=== PATIENT | female | born 1960 | race Caucasian/White ===

== ENCOUNTER 2017-03-06 11:50 | Outpatient (CLI) | payer OTHER ==
[~2017-03-06] VITALS: Ht 157.5 cm; Wt 68.0 kg
[~2017-03-06 11:50] MED LIST: COLC1TAB13 PO; LISI10TA4 PO; LR 1,000 ML IV SCH; MOME0.1C3 TOP; MONT10TA2 PO; OMEP20CA3 PO; VENL150C43 PO; VENL37.598 PO; VITA1CAP40 PO
[2017-03-06] MEDS ORDERED: PROPOFOL 500 MG/50 ML VIAL As Ordered ONE (13:20)
[2017-03-06] MEDS ORDERED: LIDOCAINE 2% INJ 100 MG/5 ML SDV (FOR ANES.) As Ordered ONE (13:20)
[2017-03-06] MEDS ORDERED: PROPOFOL 200 MG/20 ML VIAL As Ordered ONE (14:16)
--- NOTE | 2017-03-06 14:34 | ROOR ---
Patient Name: Maria Elena Pappas Procedure Date: 03/06/2017 1:47 PM Date of : 1960 Age: 56 Room: [facility] Gender: Female Note Status: Finalized Procedure: Colonoscopy Indications: Colon cancer screening in patient at increased risk: Colorectal cancer in mother, Colon cancer screening in patient at increased risk: Colorectal cancer in sister Providers: Robert Morocho MD Referring MD: Yudy Castillo MD Requesting Provider: Medicines: Monitored Anesthesia Care Complications: No immediate complications. Procedure: Pre-Anesthesia Assessment: - Prior to the procedure, a History and Physical was performed, and patient medications and allergies were reviewed. The patient is competent. The risks and benefits of the procedure and the sedation options and risks were discussed with the patient. All questions were answered and informed consent was obtained. Patient identification and proposed procedure were verified by the physician, the nurse and the anesthesiologist in the procedure room. Mental Status Examination: alert and oriented. Airway Examination: normal oropharyngeal airway and neck mobility. CV Examination: regular rate and rhythm. Prophylactic Antibiotics: The patient does not require prophylactic antibiotics. Prior Anticoagulants: The patient has taken no previous anticoagulant or antiplatelet agents. ASA Grade Assessment: II - A patient with mild systemic disease. After reviewing the risks and benefits, the patient was deemed in satisfactory condition to undergo the procedure. The anesthesia plan was to use monitored anesthesia care (MAC). Immediately prior to administration of medications, the patient was re-assessed for adequacy to receive sedatives. The heart rate, respiratory rate, oxygen saturations, blood pressure, adequacy of pulmonary ventilation, and response to care were monitored throughout the procedure. The physical status of the patient was re-assessed after the procedure. The Colonoscope was introduced through the anus and advanced to the cecum, identified by appendiceal orifice and ileocecal valve. The colonoscopy was performed without difficulty. The patient tolerated the procedure well. The quality of the bowel preparation was excellent. Findings: The digital rectal exam findings include anal stricture. Pertinent negatives include no blood and no palpable abnormality. A 4 mm polyp was found in the splenic flexure. The polyp was sessile. The polyp was removed with a piecemeal technique using a cold biopsy forceps. Resection and retrieval were complete. A single medium-sized localized angiodysplastic lesion without bleeding was found in the cecum. Impression: - Anal stricture found on digital rectal exam. I could insert my finger to the middle of the middle phalanx only. - One 4 mm polyp at the splenic flexure, removed piecemeal using a cold biopsy forceps. Resected and retrieved. - A single non-bleeding colonic angiodysplastic lesion. Recommendation: - Discharge patient to home. - Resume previous diet. - Continue present medications. - Await pathology results. - Telephone endoscopist for pathology results in 1 week. - If the pathology report reveals adenomatous tissue, then repeat the colonoscopy for surveillance in 5 years. Robert Morocho MD 03/06/2017 2:33:51 PM Number of Addenda: 0 Note Initiated On: 03/06/2017 1:47 PM Estimated Blood Loss: Estimated blood loss was minimal.
[2017-03-06 14:42] VITALS: BP 166/105
== END 2017-03-06 15:33 | disposition home or self-care (01) ==
LOC: M OPP 11:50
PROVIDERS: ATTEND Surgery
DX: Z12.11 Encounter for screening for malignant neoplasm of colon (principal); K62.4 Stenosis of anus and rectum; D12.3 Benign neoplasm of transverse colon; K55.20 Angiodysplasia of colon without hemorrhage; Z80.0 Family history of malignant neoplasm of digestive organs; I10 Essential (primary) hypertension; K21.9 Gastro-esophageal reflux disease without esophagitis; K92.9 Disease of digestive system, unspecified; L40.52 Psoriatic arthritis mutilans; F41.9 Anxiety disorder, unspecified; F32.9 Major depressive disorder, single episode, unspecified; Z79.899 Other long term (current) drug therapy

== ENCOUNTER → 2017-08-05 | Outpatient (REF) | payer OTHER ==
[2017-08-05 20:21] LABS: INFLUENZA A AMPLIFICATION NEGATIVE (NEGATIVE); INFLUENZA B AMPLIFICATION POSITIVE (NEGATIVE); RSV AMPLIFICATION NEGATIVE (NEGATIVE)
== END ==
LOC: M LAB REF 19:23
DX: J11.1 Influenza due to unidentified influenza virus with other respiratory manifestations (principal)

== ENCOUNTER → 2019-08-02 | Outpatient (REF) | payer OTHER ==
[~2019-08-02] MED LIST changes: -LR 1,000 ML IV SCH; +OMEP1CAP73 PO; -OMEP20CA3 PO; -VITA1CAP40 PO; +VITA50005 PO
== END ==
LOC: M LAB REF 09:29
PROVIDERS: ATTEND Family Medicine
DX: Z12.4 Encounter for screening for malignant neoplasm of cervix (principal)
CPT/HCPCS: 87624; G0123

== ENCOUNTER → 2020-08-29 | Outpatient (REF) | payer OTHER ==
[~2020-08-29] MED LIST changes: +COLC0.6T47 PO; -COLC1TAB13 PO; +LISI10TA22 PO; -LISI10TA4 PO; +MONT10TA10 PO; -MONT10TA2 PO
== END ==
LOC: M LAB REF 18:37
PROVIDERS: ATTEND Family Medicine
DX: Z01.419 Encounter for gynecological examination (general) (routine) without abnormal findings (principal)

== ENCOUNTER → 2020-11-22 | Outpatient (CLI) | payer OTHER ==
--- NOTE | 2020-11-22 17:23 | REPMRS ---
Patient History The patient states she had a clinical breast exam in 09/2020. Patient is postmenopausal. Family history of breast cancer at age 50 or over and colorectal cancer at age 50 or over in mother, breast cancer at age 62 and colorectal cancer at age 62 in sister, colorectal cancer at age 58 in sister. Took estrogen for 6 months. Tomosynthesis is performed. Volpara breast density is b. Patient states no breast complaints today. Patient has signed MRS History Sheet. Digital Woman Screen Mammo: November 22, 2020 - Exam #: [id number] Bilateral CC and MLO view(s) were taken. Technologist: Mikaela Zimmer, Technologist Prior study comparison: March 17, 2014, digital woman screen mammo performed at [facility]. June 19, 2010, bilateral bilat screen digital mammo performed at [facility]. FINDINGS: There are scattered fibroglandular densities. There has been no change in the appearance of the mammogram from the prior studies. There is a mild amount of residual fibroglandular tissue which is fairly symmetric. There is no interval development of dominant mass, architectural distortion, or clustered microcalcification suggestive of malignancy. Assessment: BI-RADS/ACR category 1 mammogram. Negative Mammogram. Recommendation Routine screening mammogram in 1 year (for women over age 40). This mammogram was interpreted with the aid of an FDA-approved computer-aided dectection system. The Lifetime Breast Cancer Risk is estimated at 23.2%. Yearly supplemental screening MRI of the breasts is recommended for patients with an elevated lifetime risk of breast cancer of 20% or greater, in addition to annual screening mammography, staggered every 6 months. Electronically Signed By: Tom Luong MD 11/22/20 0857
== END ==
LOC: M WHC 15:53
PROVIDERS: ATTEND Family Medicine
DX: Z12.31 Encounter for screening mammogram for malignant neoplasm of breast (principal)

== ENCOUNTER → 2021-11-29 | Outpatient (CLI) | payer OTHER ==
[~2021-11-29] MED LIST changes: -MONT10TA10 PO; +MONT10TA97 PO
== END ==
LOC: M WHC 14:26
PROVIDERS: ATTEND Family Medicine
DX: Z12.31 Encounter for screening mammogram for malignant neoplasm of breast (principal); M81.0 Age-related osteoporosis without current pathological fracture

== ENCOUNTER → 2022-03-24 | Outpatient (CLI) | payer OTHER ==
[~2022-03-24] MED LIST changes: +HYDR-3490 PO
== END ==
LOC: M LABSMTC 12:01
PROVIDERS: ATTEND Anesthesiology
DX: Z01.818 Encounter for other preprocedural examination (principal); Z11.52 Encounter for screening for COVID-19

== ENCOUNTER 2022-03-28 11:24 | Day surgery (SDC) | payer OTHER ==
[~2022-03-28] VITALS: Ht 167.6 cm; Wt 63.0 kg
[~2022-03-28 11:24] MED LIST changes: +NS 1,000 ML IV ONE
[2022-03-28] MEDS ORDERED: propofoL 200 MG/20 ML VIAL As Ordered ONE ×2 (12:05→12:17)
[2022-03-28] MEDS ORDERED: LIDOCAINE 2% 100MG/5ML SDV (FOR ANES.) As Ordered ONE (12:05)
[2022-03-28 12:45] VITALS: BP 153/87
== END 2022-03-28 12:57 | disposition home or self-care (01) ==
LOC: M OPP 11:24
PROVIDERS: ATTEND Surgery
DX: Z12.11 Encounter for screening for malignant neoplasm of colon (principal); Z86.010 Personal history of colon polyps; Z80.0 Family history of malignant neoplasm of digestive organs; D12.0 Benign neoplasm of cecum; D12.2 Benign neoplasm of ascending colon; K62.4 Stenosis of anus and rectum; Z79.52 Long term (current) use of systemic steroids; Z79.899 Other long term (current) drug therapy; Z79.810 Long term (current) use of selective estrogen receptor modulators (SERMs); I10 Essential (primary) hypertension; E78.5 Hyperlipidemia, unspecified; F32.9 Major depressive disorder, single episode, unspecified; F41.9 Anxiety disorder, unspecified

== ENCOUNTER → 2022-07-30 | Outpatient (CLI) | payer OTHER ==
[~2022-07-30] MED LIST changes: -NS 1,000 ML IV ONE; +PROHANCE 279.3MG/ML 15ML VIAL ONE
== END ==
LOC: M PLAIMG 13:47
PROVIDERS: ATTEND Family Medicine
DX: Z15.01 Genetic susceptibility to malignant neoplasm of breast (principal); Z80.3 Family history of malignant neoplasm of breast

== ENCOUNTER → 2022-09-04 | Outpatient (CLI) | payer OTHER ==
[~2022-09-04] MED LIST changes: +ISOVUE-370 76% 100ML VIAL As Ordered ONE; -PROHANCE 279.3MG/ML 15ML VIAL ONE
== END ==
LOC: M RAD 14:08
PROVIDERS: ATTEND Family Medicine
DX: M99.88 Other biomechanical lesions of rib cage (principal)

== ENCOUNTER → 2024-01-13 | Outpatient (CLI) | payer OTHER ==
[~2024-01-13] MED LIST changes: -ISOVUE-370 76% 100ML VIAL As Ordered ONE
== END ==
LOC: M RAD 17:00
PROVIDERS: ATTEND Family Medicine
DX: M25.551 Pain in right hip (principal)